=== PATIENT | female | born 2000 | race Two or more races ===

== ENCOUNTER 2022-06-03 17:21 | Emergency (ER) | payer OTHER ==
[~2022-06-03] VITALS: Ht 170.2 cm; Wt 108.9 kg
--- NOTE | 2022-06-03 18:28 | NUR ---
bib fiancee co ankle pain few hours ptc. she had twisted ankle left with swelling and pain 09/14. claims thrd time to twist her ankle, whuile walking. she is not resp distress. PA AT BED SIDE. NURSING CARE DONE .AWAITING FOR MD LIANG MUNOZ MADE AWARE
--- NOTE | 2022-06-03 18:45 | NUR ---
PT HOOKED TO MONITOR AND PULSE
[2022-06-03 18:58] VITALS: BP 95/70
== END 2022-06-03 19:01 | disposition home or self-care (01) ==
LOC: ER 17:30
DX: S93.492A Sprain of other ligament of left ankle, initial encounter (principal); X50.1XXA Overexertion from prolonged static or awkward postures, initial encounter; Y93.89 Activity, other specified; Y92.89 Other specified places as the place of occurrence of the external cause; Y99.0 Civilian activity done for income or pay